=== PATIENT | female | born 1970 | race Asian ===

== ENCOUNTER → 2017-11-15 | Outpatient (CLI) | payer OTHER ==
--- NOTE | 2017-11-15 11:21 | Diagnostic Imaging Report ---
PROCEDURE: X-RAY CHEST, TWO VIEWS COMPARISON: None. INDICATIONS: SHORTNESS OF BREATH FINDINGS: LUNGS: No consolidations or edema. PLEURA: No effusions or pneumothorax. HEART \T\ MEDIASTINUM: The heart is within normal size-limits. Mild tortuosity of the thoracic aorta. BONES \T\ SOFT TISSUES: No acute findings. CONCLUSION: No acute thoracic abnormality. Loc Vernon D.O. Dictated by: Loc Vernon D.O. on 11/15/2017 at 11:25 Electronically approved by: Loc Vernon D.O. on 11/15/2017 at 11:25
--- NOTE | 2017-11-15 12:09 | Diagnostic Imaging Report ---
PROCEDURE: US THYROID COMPARISON: Outside ultrasound performed in [place] not available for comparison. INDICATIONS:PERSONAL HISTORY OF OTHER ENDOCRINE, NUTRITIONAL, AND METABOLIC DISEASE TECHNIQUE: Transverse and longitudinal frazier-scale sonographic images of the thyroid were obtained and supplemented with color Doppler. FINDINGS: Echotexture: Normal. Vascularity: Normal. Measurements: Right thyroid lobe: Measures 1.2 x 2.1 x 4.2 cm. Left thyroid lobe: Measures 1.4 x 2.4 x 4.8 cm. Isthmus: 0.2 cm Nodules (measurements given AP, transverse, craniocaudal): Right lobe: * Cystic and solid isoechoic smoothly marginated nodule in the lower pole measures 6 x 9 x 12 mm. No echogenic foci (labeled as #2). * Cystic and solid isoechoic smoothly marginated nodule in the lower pole measures 5 x 5 x 9 mm. No echogenic foci (labeled as #1). * Cystic and solid isoechoic nodule in the mid lobe measures 4 x 5 x 6 mm. Margins are smooth. No echogenic foci (labeled as #3). * Cystic and solid isoechoic nodule in the upper lobe measures 5 x 7 x 7 mm. No echogenic foci (labeled #4). Left lobe: * Mixed cystic and solid nodule in the interpolar region measures 9 x 11 x 20 mm (labeled as #1) * Mixed cystic and solid nodule in the interpolar region measures 5 x 7 x 8 mm. Solid component is isoechoic. Margins are smooth. No echogenic foci (labeled as #2). * Almost completely solid isoechoic nodule in the mid lobe measures 4 x 7 x 10 mm. Margins are smooth. No echogenic foci (labeled as #3). * Mixed cystic and solid isoechoic nodule in the interpolar region measures 3 x 5 x 9 mm. Margins are smooth. No echogenic foci (labeled as #4). * Predominately solid isoechoic smoothly marginated nodule in the mid lobe measures 5 x 10 x 15 mm. No echogenic foci (labeled as #5). Lymph nodes: No lymphadenopathy. Parathyroid: Not visualized. CONCLUSION: 1. Normal size of the thyroid gland. 2. Nodules in the right lobe correspond to TR 2. No biopsy or surveillance is recommended. 3. Nodule #3 in the left lobe corresponds to TR 3a. Based on size, no follow-up is necessary. 4. Nodule #5 in the left lobe corresponds to TR 3b. Follow-up in 1, 3, and 5 years is recommended to confirm stability. ACR TI-RADS (TR) Lexicon: TR1, Benign: No FNA TR2, Not Suspicious: No FNA. TR3a (<1.5 cm): No follow-up. TR3b (1.5-2.5 cm), Mildly Suspicious: Follow at 1, 3, 5 years. TR3c (>2.5 cm), Mildly Suspicious: FNA. TR4a (<1.0 cm): No follow-up. TR4b (1.0-1.5 cm), Moderately Suspicious: Follow at 1, 2, 3, 5 years. TR4c (>1.5 cm), Moderately Suspicious: FNA. TR5a (<0.5 cm): No follow-up. TR5b (0.5-1.0 cm), Highly Suspicious: Follow at 1, 2, 3, 4, 5 years. TR5c (>1.0 cm), Highly Suspicious: FNA. *Rebiopsy if new suspicious features *No recommendation at this time for significant interval growth. Literature: ACR Thyroid Imaging, Reporting and Data System (TI-RADS): White Paper of the ACR TI-RADS Committee. J Am Erick Radiol 2017. Dictated by: Yobany Cruz M.D. on 11/15/2017 at 12:13 Electronically approved by: Yobany Cruz M.D. on 11/15/2017 at 12:13
== END ==
LOC: MAMMO 08:44
PROVIDERS: ATTEND Internal Medicine
DX: Z12.31 Encounter for screening mammogram for malignant neoplasm of breast (principal); R06.2 Wheezing; Z86.39 Personal history of other endocrine, nutritional and metabolic disease
CPT/HCPCS: 71046; 76536; 77067